=== PATIENT | male | born 1990 | race Caucasian/White ===

== ENCOUNTER 2023-02-04 10:10 | Outpatient (RCR) | payer OTHER | END 2023-02-19 | LOC: WSOH | DX: S46.812D Strain of other muscles, fascia and tendons at shoulder and upper arm level, left arm, subsequent encounter (principal); Y99.0 Civilian activity done for income or pay ==

== ENCOUNTER 2023-09-29 20:26 | Emergency (ER) | payer MEDICAID, OTHER ==
[~2023-09-29] VITALS: Ht 182.9 cm; Wt 100.0 kg
[2023-09-29 20:58] VITALS: TEMP 98.4
[2023-09-29] MEDS ORDERED: Home HYDROcodone/Acetaminophen 5/325 MG #4 TABS/PACK PO ONE (22:45)
[2023-09-29 22:47] VITALS: BP 140/75; PULSE 75
== END 2023-09-29 22:47 | disposition home or self-care (01) ==
LOC: COL.ER 20:26
DX: S09.90XA Unspecified injury of head, initial encounter (principal); S01.81XA Laceration without foreign body of other part of head, initial encounter; Z23 Encounter for immunization; W22.8XXA Striking against or struck by other objects, initial encounter